=== PATIENT | male | born 2005 | race Caucasian/White ===

== ENCOUNTER 2024-07-23 21:16 | Emergency (ER) | payer MEDICAID, OTHER ==
[2024-07-23] MEDS: Diphtheria,Pertussis(Acell),Tetanus Vaccine 0.5 ML Syringe IM ONE (22:36)
[2024-07-23] MEDS: Mupirocin Oint 22 GM Tube TOP ONE (22:37)
== END 2024-07-23 22:50 | disposition home or self-care (01) ==
LOC: FB.ED 21:16
DX: S61.002A Unspecified open wound of left thumb without damage to nail, initial encounter (principal); Z23 Encounter for immunization; W26.0XXA Contact with knife, initial encounter
CPT/HCPCS: 90471; 90715; 99283; A9270